=== PATIENT | female | born 1995 | race Caucasian/White ===

== ENCOUNTER 2018-10-08 18:52 | Emergency (ER) | payer OTHER ==
[2018-10-08] MEDS ORDERED: IBUPROFEN 600 MG TABLET PO ONE (19:27)
[2018-10-08] MEDS ORDERED: LIDOCAINE 5% (700 MG) TRANSDERMAL ADH..PATCH TP ONE (19:27)
[2018-10-08] MEDS ORDERED: ACETAMINOPHEN 325 MG TABLET PO ONE (19:27)
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
--- NOTE | 2018-10-08 20:08 | RADIOLOGY REPORT (SQ) ---
EXAM DESCRIPTION: RIBS RIGHT W/PA CHEST COMPLETED DATE/TIME: 10/08/2018 7:56 pm REASON FOR STUDY: trauma COMPARISON: None. TECHNIQUE: Frontal view of the chest and additional views of the right ribs acquired. NUMBER OF VIEWS: Five view. LIMITATIONS: None. FINDINGS: FRONTAL CXR: No pneumothorax. No pleural effusion. No atelectasis or infiltrates. RIBS: No displaced rib fractures. No lytic or blastic bony lesions. OTHER: No other significant finding. IMPRESSION: NO PNEUMOTHORAX. NO DISPLACED RIB FRACTURES. COMMENT: SITE OF TRAUMA/COMPLAINT MARKED/STAMP COMPLETED: YES. TECHNICAL DOCUMENTATION: JOB ID: [id number] [employer]- All Rights Reserved Reading location - IP/workstation name: [email or web address]
[2018-10-08 20:17] VITALS: BP 122/74
== END 2018-10-08 20:16 | disposition home or self-care (01) ==
LOC: ER 18:52
DX: R07.81 Pleurodynia (principal); V09.1XXA Pedestrian injured in unspecified nontraffic accident, initial encounter
CPT/HCPCS: 99283

== ENCOUNTER 2020-05-04 20:59 | Emergency (ER) | payer BC ==
[2020-05-05] MEDS ORDERED: IBUPROFEN 800 MG TABLET PO ONE (00:20)
[2020-05-05] MEDS ORDERED: DEXAMETHASONE SOD PHOS INJ 10 MG/1 ML VIAL IM ONE (00:20)
--- NOTE | 2020-05-05 00:29 | ER Document Report ---
HPI - HPI Time Seen by Provider: 05/04/20 22:00 Context: Patient is a 24-year-old female that comes to the emergency department for chief complaint of sore throat for the past 3 days. She states she feels like her lymph nodes are swollen, and she reports she can see that the back of her throat is very red. She denies cough, congestion, fever, inability to swallow, shortness of breath, abdominal pain, vomiting, diarrhea, or any obvious sick contacts. She has had a tonsillectomy and uvulectomy. She has a past medical history of PCOS and is medicated for this but has no other reported medical history. She denies . Patient was just placed on Bactrim for a UTI with primary care. - REPRODUCTIVE Reproductive: DENIES: : Past Medical History - General Information source: Patient - Social History Smoking Status: Never Smoker Frequency of alcohol use: None Drug Abuse: None Lives with: Family Family History: Reviewed & Not Pertinent Renal/ Medical History: Denies: Hx Peritoneal Dialysis Past Surgical History: Reports: Hx Cholecystectomy, Hx Tonsillectomy - Tonsillectomy and uvulectomy for snoring/sleep apnea - Immunizations Immunizations up to date: Yes Hx Diphtheria, Pertussis, Tetanus Vaccination: Yes Vertical Provider Document - CONSTITUTIONAL General Appearance: WD/WN, No Apparent Distress - INFECTION CONTROL TRAVEL OUTSIDE OF THE [place] IN LAST 30 DAYS: No - HEENT HEENT: Atraumatic, Normocephalic. negative: Normal ENT Exam - Erythema of the posterior pharynx but no tonsils are noted, uvula is very small, patent airway. Unremarkable oropharyngeal exam otherwise. Unremarkable nasal, eye, ear exams - NECK Neck: Other - Bilateral anterior cervical adenopathy, submandibular area normal - RESPIRATORY Respiratory: Breath Sounds Normal, No Respiratory Distress - CARDIOVASCULAR Cardiovascular: Regular Rate, Regular Rhythm - GI/ABDOMEN Gastrointestinal: Abdomen Soft, Abdomen Non-Tender, No Organomegaly. negative: Abdomen Tender - BACK Back: Normal Inspection - MUSCULOSKELETAL/EXTREMETIES Musculoskeletal/Extremeties: MAEW, FROM, Non-Tender - NEURO Level of Consciousness: Awake, Alert, Appropriate Motor/Sensory: No Motor Deficit, No Sensory Deficit - DERM Integumentary: Warm, Dry, No Rash Course - Re-evaluation Re-evalutation: Patient with erythema the posterior pharynx, unremarkable otherwise except for anterior cervical adenopathy. Patient has no other symptoms. Strep is negative. Abdomen soft benign, no evidence of splenomegaly. I discussed with patient, this could be either viral or strep, patient had just charted taking Bactrim, we decided to change her over to Keflex for her UTI for double coverage. Culture is pending. Discussed expectations, follow-up, return precautions, provided with dexamethasone because of her lymphadenopathy. Patient states understanding and agreement. Patient stable and well-appearing at time of discharge. - Vital Signs Vital signs: Temp Pulse Resp BP Pulse Ox 98.7 F 110 H 16 138/87 H 100 05/04/20 21:09 05/04/20 21:09 05/04/20 21:09 05/04/20 21:09 05/04/20 21:09 Discharge - Discharge Clinical Impression: Anterior cervical adenopathy Pharyngitis Qualifiers: Pharyngitis/tonsillitis etiology: unspecified etiology Qualified Code(s): J02.9 - Acute pharyngitis, unspecified Condition: Stable Disposition: HOME, SELF-CARE Additional Instructions: Your strep is negative, the culture is pending. This could be viral. We are switching your antibiotic for your urinary tract infection from Bactrim to Keflex, stop the Bactrim, take the Keflex to completion. You can take 1000 mg of Tylenol and 600 mg of ibuprofen every 6 hours if needed for pain. Drink plenty of fluids and rest. Follow-up with primary care. Return for any concerning symptoms including difficulty swallowing or breathing, severe headache, stiff neck, severe abdominal pain or faintness, or any other concerning symptoms. Prescriptions: Cephalexin Monohydrate [Keflex 500 mg Capsule] 500 mg PO BID 10 Days #20 capsule Forms: Return to Work Referrals: GIANCARLO CAGLE MD [Primary Care Provider] - Follow up as needed
[2020-05-05 01:43] VITALS: BP 116/71
== END 2020-05-05 01:53 | disposition home or self-care (01) ==
LOC: ER 20:59
DX: J02.9 Acute pharyngitis, unspecified (principal); R59.0 Localized enlarged lymph nodes
CPT/HCPCS: 99283; 96372; 36415; 87070; 87880; J1100